=== PATIENT | male | born 1950 | race Caucasian/White ===

== ENCOUNTER 2018-11-05 02:26 | Inpatient (IN) ==
--- NOTE | 2018-10-29 10:54 | EKG Report ---
Test Performed on : 10/29/2018 10:39:11 AM Test Reason : PAT Blood Pressure : / mmHG Vent. Rate : 062 BPM Atrial Rate : 062 BPM P-R Int : 168 ms QRS Dur : 084 ms QT Int : 402 ms P-R-T Axes : 069 057 061 degrees QTc Int : 408 ms Normal sinus rhythm. Normal ECG When compared with ECG of 25-FEB-2018 10:07, No significant change was found Confirmed by Morro Cotto MD ([id number]) on 10/30/2018 7:35:51 AM
[2018-10-29 11:12] LABS: HEMATOCRIT 42.7 % (42.0-52.0); MCH 29.7 PG (27-31); MCHC 32.8 g/dL (33-37); MCV 90.5 FL (81-99); MPV 9.2 FL (7.4-10.4); RBC 4.72 XMIL (4.7-6.1); RDW 12.8 % (11.5-14.5); WBC 7.96 X1000 (4.8-10.8)
[2018-10-29 11:14] LABS: AGAP 14; BUN 11 mg/dL (8-22); CHLORIDE 96 mmol/L (98-107); COSMO 270; CREATININE 0.9 mg/dL (0.7-1.2); ESTIMATED GFR > 60; GLUCOSE 103 mg/dL (70-104); POTASSIUM 4.8 mmol/L (3.5-5.1); SODIUM 135 mmol/L (136-145); TCO2 25 mmol/L (25-35)
[2018-11-05] MEDS ORDERED: LR 1,000 ML ONE ×2 (07:25→11:28)
[2018-11-05] MEDS ORDERED: PEPCID ONE (07:25)
[2018-11-05] MEDS ORDERED: KEFZOL 1 GM/D5W 1 GM/50 ML IVPB ONE (07:25)
[2018-11-05] MEDS ORDERED: SENSORCAINE 0.25%/EPI 1:200,000 ONE (07:53)
[2018-11-05] MEDS ORDERED: KEFZOL ONE (07:53)
[2018-11-05] MEDS ORDERED: NS 2,000 ML ONE (07:54)
[2018-11-05] MEDS ORDERED: NS 500 ML ONE (07:54)
[2018-11-05] MEDS ORDERED: HEPARIN ONE ×2 (07:54)
[2018-11-05] MEDS ORDERED: QUELICIN (DOSE) ONE (08:33)
[2018-11-05] MEDS ORDERED: XYLOCAINE-MPF 2% ONE (08:33)
[2018-11-05] MEDS ORDERED: DIPRIVAN 1% ONE (08:33)
[2018-11-05] MEDS ORDERED: ZEMURON ONE ×2 (09:23→10:00)
[2018-11-05] MEDS ORDERED: FENTANYL ONE (09:35)
[2018-11-05 09:47] LABS: URINE SOURCE CATH
[2018-11-05] MEDS ORDERED: ZOFRAN ONE (09:48)
[2018-11-05] MEDS ORDERED: DECADRON ONE (09:48)
[2018-11-05] MEDS ORDERED: HEPARIN (DOSE) ONE (09:48)
[2018-11-05 09:58] LABS: BILIRUBIN URINE NEGATIVE (NEGATIVE); BLOOD URINE NEGATIVE (NEGATIVE); COLOR STRAW; GLUCOSE URINE NEGATIVE (NEGATIVE); KETONE URINE NEGATIVE (NEGATIVE); LEUKOCYTES URINE NEGATIVE (NEGATIVE); NITRITE URINE NEGATIVE (NEGATIVE); PROTEIN URINE NEGATIVE (NEGATIVE); TURBIDITY URINE CLEAR (CLEAR); UROBILINOGEN URINE NORMAL (NORMAL)
[2018-11-05 10:00] LABS: UR EPITHELIAL CELLS <10 /HPF (<10); URINE BACTERIA NEGATIVE /HPF; URINE RBC <10 /HPF (<10); URINE WBC <10 /HPF (<10)
[2018-11-05] MEDS ORDERED: ROBINUL ONE (10:46)
[2018-11-05] MEDS ORDERED: NEOSTIGMINE ONE (10:47)
[2018-11-05] MEDS ORDERED: DILAUDID IV PRN (11:59)
[2018-11-05] MEDS ORDERED: NORCO-10 PO PRN (11:59)
[2018-11-05] MEDS ORDERED: ZOFRAN IV PRN (11:59)
[2018-11-05] MEDS ORDERED: LR 1,000 ML IV SCH ×2 (11:59→16:45)
--- NOTE | 2018-11-05 12:06 | OPERATIVE NOTE ---
PROCEDURE DATE: 11/05/2018 NAME OF THE PROCEDURE: 1. Open left leg arteriogram. 2. Left femoral endarterectomy with patch angioplasty. SURGEON: Nick Trujillo MD. NEIGHBORHOOD COORDINATOR: YULY Euceda. PREOPERATIVE DIAGNOSES: 1. Left leg claudication. 2. Left femoral artery occlusion. POSTOPERATIVE DIAGNOSES: 1. Left leg claudication. 2. Left femoral artery occlusion. INDICATIONS: A 68-year-old with significant claudication in the left leg. His CTA suggests left femoral artery occlusion. DESCRIPTION OF PROCEDURE: Satisfactory general endotracheal anesthesia was achieved, the right groin, left groin and left leg were prepped and draped in a sterile fashion. A vertical incision was made in the left groin. We carried our incision into the subcutaneous tissue. We identified the common femoral artery. The inguinal ligament was surrounded with an umbilical tape, a pulse was palpated there. We then dissected distally, identified the profunda, surrounded it with a large vessel loop and dissected down for a few centimeter onto the SFA until the artery felt softer. 7000 units of heparin were given. We actually stuck the artery at the most distal aspect of the incision and passed a 7-Upper Sorbian sheath. We then shot an arteriogram and the SFA was satisfactory patent all the way through the popliteal into the trifurcation. We then decided we would not need to do an atherectomy but simply do an endarterectomy for the extent of the exposed the femoral artery. So, after the heparin circulated satisfactorily, we clamped off the common femoral, held the deep femoral and the superficial femoral with vessel loops and then incised the artery, extended with the [place] scissors through the plaque and clot. We went from the palpable pulse in the proximal common femoral all the way down to the area where we had placed the sheath in the SFA. This measured about 8 cm. There was some old clot in the artery that we removed. There was also a plaque right at the level of the profunda. We then used a [place] tool to raise the plaque out of the artery and do an endarterectomy all the way back to where there was flow in the common femoral and down the superficial femoral until we got to the point of where the plaque was the thinnest and we cut it off and then tacked it with 6-0 Prolene stitches. We irrigated out the endarterectomized vessel and removed all leaflets we could identify. We did probe the profunda to a 4 mm and it admitted a 4 satisfactory and good back bleeding was present. We had already obtained an 8 cm bovine patch. After the endarterectomized vessel was adequately irrigated, we then did the patch angioplasty with a 6-0 Prolene running stitch. As we neared completion of the patch angioplasty, we allowed the profunda to fill the vessel. A couple of small bleeding points were secured with 6-0 Prolene [id number] stitches and then flow was established. A pulse was palpated underneath the patch angioplasty. A pulse was palpated in the distal SFA. We did use Gel-Foam was well as Surgiflo to achieve complete hemostasis of the patch angioplasty. We irrigated it with antibiotic solution as Kefzol impregnated saline. We then closed the subcutaneous tissue in 2 layers using a 2-0 Polysorb running. The skin was closed with a 4-0 Polysorb subcuticular stitch. A Telfa sterile OpSite was applied. He tolerated it well, was sent to the recovery room in satisfactory condition. cc: Nick Trujillo MD
[2018-11-05] MEDS: KEFZOL 1 GM/D5W 1 GM/50 ML IVPB IV SCH (18:12)
--- NOTE | 2018-11-05 20:13 | GENERAL SURGERY PROGRESS NOTE ---
DATE: 11/05/2018 SUBJECTIVE/OBJECTIVE: At 4:46 in the afternoon, he is doing well. He has a palpable foot pulse. His bandage is dry. ASSESSMENT/PLAN: The plan will be to remove his Martinez catheter so he can get up and be more comfortable. Hopefully we can discharge him tomorrow if all continues well. cc: Nick Trujillo MD
[2018-11-05] MEDS ORDERED: BENADRYL PO SCH (21:00)
[2018-11-05] MEDS ORDERED: LIPITOR PO SCH (21:00)
[2018-11-06] MEDS: KEFZOL 1 GM/D5W 1 GM/50 ML IVPB IV SCH (00:34)
[2018-11-06] MEDS ORDERED: NORVASC PO SCH (09:00)
[2018-11-06] MEDS ORDERED: VITAMIN D PO SCH (09:00)
[2018-11-06] MEDS ORDERED: ALTACE PO SCH (09:00)
[2018-11-06] MEDS ORDERED: CALTRATE 600 PO SCH (09:00)
[2018-11-06] MEDS ORDERED: MAXZIDE-25 PO SCH (09:00)
[2018-11-06] MEDS ORDERED: PRILOSEC PO SCH (09:00)
[2018-11-06 12:21] VITALS: BP 141/72
--- NOTE | 2018-11-06 14:14 | PROGRESS NOTE ---
DATE: 11/06/2018 SUBJECTIVE: Postoperative day 1 after left femoral endarterectomy. He has already noticed a difference when he walks down the [place]opez. His bandage is dry. I think he has a 1+ posterior tibial pulse. He is afebrile, heart rate 60, blood pressure 146/75. PLAN: Discharge. I will keep him on aspirin and Plavix, hydrocodone for pain. He will return to see me in the office in a week. I discussed wound care and activity. cc: Nick Trujillo MD MTDD
[2018-11-07] MEDS ORDERED: ASPIRIN PO SCH (09:00)
[2018-11-07] MEDS ORDERED: PLAVIX PO SCH (09:00)
== END 2018-11-06 13:29 | disposition home or self-care (01) | DRG 253 ==
LOC: SURHOLD 02:26 → 4N 09:58
PROVIDERS: ADMIT Surgery; ATTEND Surgery